=== PATIENT | male | born 1975 | race Caucasian/White ===

== ENCOUNTER → 2017-02-23 | Outpatient (CLI) | payer BC ==
[~2017-02-23] MED LIST: MEDLIST; OXYC-57 PO
--- NOTE | 2017-02-23 14:22 | DIAGNOSTIC IMAGING REPORT ---
TESTICULAR ULTRASOUND CLINICAL HISTORY: N50.812 Testicular pain, left COMPARISON STUDY: No previous studies for comparison. FINDINGS: The right testis measures 47 x 23 x 35 mm. The left testis measures 48 x 20 x 30 mm. No intratesticular masses are visualized. There is no evidence of testicular torsion. There is a 2 mm right-sided epididymal cyst. IMPRESSION: 1. No evidence of intratesticular mass 2. No evidence of testicular torsion Electronically signed by: Ziyad Palomino M.D. 02/23/2017 2:21 PM Dictated Date/Time: 02/23/2017 2:20 PM
== END | disposition home or self-care (01) ==
LOC: C.ULTR 12:56
PROVIDERS: ATTEND Family Medicine
DX: N50.812 Left testicular pain (principal)

== ENCOUNTER 2019-02-18 06:01 | Observation (INO) ==
[2019-02-14 11:58] LABS: Basophils # (auto) 0.02 K/uL (0-0.2); Basophils % (auto) 0.4 %; Eosinophils # (auto) 0.21 K/uL (0-0.5); Eosinophils % (auto) 3.8 %; Hematocrit (blood only) 43.2 % (42-52); Hemoglobin 15.2 g/dL (14.0-18.0); Immature Granulocytes # (auto) 0.01 K/uL (0.00-0.02); Immature Granulocytes % (auto) 0.2 %; Lymphocytes # (auto) 1.66 K/uL (1.2-3.4); Mean Corpuscular Hemoglobin 32.3 pg (25-34); Mean Corpuscular Hgb Conc 35.2 g/dL (32-36); Mean Corpuscular Volume 91.9 fL (80-100); Mean Platelet Volume 11.3 fL (7.4-10.4); Monocytes # (auto) 0.53 K/uL (0.11-0.59); Monocytes % (auto) 9.6 %; Neutrophils # (auto) 3.11 K/uL (1.4-6.5); Platelet Count 259 K/uL (130-400); RDW Coefficient of Variation 11.8 % (11.5-14.5); RDW Standard Deviation 40.1 fL (36.4-46.3); White Blood Count 5.54 K/uL (4.8-10.8)
--- NOTE | 2019-02-14 13:03 | Anesthesiology Consultation ---
Date of Service February 14, 2019 Assessment & Plan (1) Encounter for pre-operative examination: Chart Review Chart Review: Acceptable Risk for Surgery Consults Requested none History Surgery Operation Date: 02/18/19 07:30 Proposed Procedures p C6-C7 Cervical Disc Arthroplasty with End Plate Prep - Vern Goode DO Height/Weight Height: 6 ft 3 in Weight: 104.326 kg Allergies Allergy/AdvReac Type Severity Reaction Status Date / Time No Known Allergies Allergy Verified 02/05/19 10:56 Medications Home Medications Medication Instructions Recorded Confirmed Last Taken hydrocodone 5 mg-acetaminophen 325 1 tab PO Q6H PRN #30 tab 01/07/19 02/05/19 Unknown mg tablet Past Medical History Medical History Kidney stones Osteoarthritis Protrusion of intervertebral disc CERVICAL LEVEL Past Family History Family History Grandfather (Maternal) Myocardial infarction Grandfather (Paternal) Myocardial infarction Coronary heart disease AAA (abdominal aortic aneurysm) Mother Kidney stones Hyperlipidemia Father Hypertension Mother Hypertension Grandfather (Maternal) Coronary heart disease Grandfather Cardiac disorder Past Surgical History Surgical History History of tooth extraction Lipoma REMOVAL STOP BANG Total 1 Social History Smoking Status: Never smoker tobacco type: smokeless tobacco Do You Dip or Chew Tobacco: No (QUIT 3 YEARS AGO) Hx Alcohol Use: Yes Alcohol type: beer alcohol intake frequency: a few times a month Hx Substance Use: No substance use type: does not use Testing Laboratory Results 02/14/19 10:36
--- NOTE | 2019-02-15 13:40 | History and Physical Report ---
DATE OF ADMISSION: 02/18/2019 CHIEF COMPLAINT: Neck pain, arm pain, weakness. HISTORY OF PRESENT ILLNESS: Bsoton has a large herniation of the cervical spine with nerve root irritation, pressure and pain and has failed conservative measures. PAST MEDICAL HISTORY: Negative for hypertension, COPD, diabetes. PAST SURGICAL HISTORY: Negative. ALLERGIES: Negative. SOCIAL HISTORY: He is , 4 children. No alcohol. Very active. REVIEW OF SYSTEMS: Twelve system review is positive for no fevers, sweats, chills. Ear, nose and throat negative. No chest pain, palpitations. No nausea, vomiting. No urgency, frequency. He has tingling, numbness, stiffness, weakness and muscle pain. MEDICATIONS: DICLOFENAC. PHYSICAL EXAMINATION: VITAL SIGNS: Blood pressure 130/80, pulse 80, respirations 16. HEENT: Pupils react to light and accommodation. Ear, nose and throat clear. CARDIAC: Normal S1, S2, no S3. His cervical spine demonstrates significant Spurling maneuver, significant Lhermitte sign, triceps weakness graded 3/5, worsening. IMPRESSION: Large herniation, cervical spine C6-C7. PLAN: Includes a cervical disc arthroplasty, C6-C7 of the cervical spine.
[~2019-02-18 06:01] MED LIST changes: +CEFAZOLIN 2000MG 2,000 MG/15 ML SYR IV SCH; +LR 15ML/HR IV SCH; -MEDLIST; -OXYC-57 PO; +SODIUM CHLORIDE 0.9% 1,000 ML IV SCH
[2019-02-18] MEDS ORDERED: MIDAZOLAM HCL 1 MG/ML 2ML VIAL ONE (06:56)
[2019-02-18] MEDS ORDERED: ONDANSETRON INJ 2 MG/ML 2 ML VIAL IV PRN ×2 (06:56→11:15)
[2019-02-18] MEDS ORDERED: ATROPINE SULFATE 0.1 MG/ML 10ML SYR IV PRN (06:56)
[2019-02-18] MEDS ORDERED: fentaNYL citrate 100 MCG/2 ML VIAL ONE (06:56)
[2019-02-18] MEDS ORDERED: fentaNYL citrate 100 MCG/2 ML VIAL IV PRN (06:56)
[2019-02-18] MEDS ORDERED: ePHEDrine sulfate 50 MG/ML AMP IV PRN (06:56)
[2019-02-18] MEDS ORDERED: THROMBIN FOR SOLN 20000 UNIT KIT ONE (07:00)
[2019-02-18] MEDS ORDERED: BACITRACIN INJ 50,000 UNIT VIAL ONE (07:00)
[2019-02-18] MEDS ORDERED: EPINEPHrine INJ 1 MG/ML AMP ONE (07:00)
[2019-02-18] MEDS ORDERED: BUPIVACAINE 0.5 % 5 MG/1 ML MPF 30ML VIAL ONE (07:00)
[2019-02-18] MEDS ORDERED: GELATIN SPONGE SZ 100 ONE (07:00)
--- NOTE | 2019-02-18 07:21 | History & Physical Bridge Note ---
Date of Service February 18, 2019 History & Physical Bridge Note I have examined the patient, reviewed the History & Physical and in the interval since the performance of the History & Physical I have noted the following changes of clinical significance: no changes noted
[2019-02-18] MEDS ORDERED: ePHEDrine sulfate 50 MG/ML SYR ONE (07:59)
[2019-02-18] MEDS ORDERED: ROCURONIUM BROMIDE 10 MG/ML 5 ML VIAL ONE (07:59)
[2019-02-18] MEDS ORDERED: ONDANSETRON INJ 2 MG/ML 2 ML VIAL ONE (07:59)
[2019-02-18] MEDS ORDERED: DEXAMETHASONE SOD INJ 4 MG/ML VIAL ONE (07:59)
[2019-02-18] MEDS ORDERED: NEOSTIGMINE METHYLSULFATE 5 MG/5 ML SYR ONE (07:59)
[2019-02-18] MEDS ORDERED: LARYING-O-JET KIT (LTA) ONE (07:59)
[2019-02-18] MEDS ORDERED: PROPOFOL IV EMULSION 10 MG/ML 20 ML VIAL IV ONE (07:59)
[2019-02-18] MEDS ORDERED: GLYCOPYRROLATE 0.2 MG/ML VIAL ONE (07:59)
[2019-02-18] MEDS ORDERED: LIDOCAINE HCL 2% 2 ML VIAL/AMP(20MG/ML) INFIL ONE (07:59)
[2019-02-18] MEDS ORDERED: HYDROmorphone INJ 2 MG/ML SYR/VIAL ONE (08:00)
--- NOTE | 2019-02-18 09:41 | Post Operative Brief Note ---
PG Immediate Post Op with CF Date of Surgery February 18, 2019 Pre & Post Diagnosis Operation Date: 02/18/19 07:30 Pre-Op Diagnosis: Large herniation, cervical spine C6-C7 Post-Op Diagnosis: Large herniation, cervical spine C6-C7 I identified the patient and participated in the time-out.: Yes Procedure Operation Date: 02/18/19 07:30 Actual Procedures p C6-C7 Cervical Disc Arthroplasty (Not Applicable) - Vern Goode DO Surgeon Vern Goode DO Long Winder Tender basilio Estimated Blood Loss 10 Findings Consistent with Post-Op Diagnosis Specimens Specimen Description: none per surgeon Drains Cherelle Drain (1/4 inch) Overlapping Procedure I was immediately available: during the entire case.
--- NOTE | 2019-02-18 09:43 | Fluoroscopy Report ---
FL spine 1V any level CLINICAL HISTORY: ACDF C6-7 COMPARISON STUDY: None. FLUOROSCOPY TIME: 1 minute and 4 seconds. FINDINGS: 2 fluoroscopic spot images of the cervical spine demonstrate C6-C7 arthroplasty with an ass ociated disc spacer. The hardware appears intact. IMPRESSION: Fluoroscopy provided for postoperative changes within the cervical spine as described abo ve. Electronically signed by: Alexander Weinberg M.D. 02/18/2019 9:42 AM
--- NOTE | 2019-02-18 10:04 | Operative Report ---
DATE OF OPERATION: 02/18/2019 SURGEON: Vern Goode DO SAIL CUTTER: Sher Guzmán. COMPLICATIONS: Zero. BLOOD LOSS: Less than 100 mL. PREOPERATIVE DIAGNOSIS: Cervical disc herniation with cord compression C6-C7 cervical spine. POSTOPERATIVE DIAGNOSIS: Cervical disc herniation with cord compression C6-C7 cervical spine. PROCEDURE: Include an anterior cervical arthroplasty, C6-7 cervical spine. COMPLICATIONS: Zero. BLOOD LOSS: Stated. IMPLANTS USED: Mobi-C cervical arthroplasty. DESCRIPTION OF PROCEDURE: The patient was taken to the operating room, a general intubated anesthetic provided to the patient, kept supine on the Jose table. We taped him perfectly placement approximately 5 pounds of traction. We scrubbed with Betadine, prepped with ChloraPrep and commenced with surgery. A formal timeout was taken. We made a transverse skin incision right over the C6-C7 interval, came right down to C6-C7 interspace. We marked this with a C-spine lateral radiograph. I then performed the dissection and meticulously got all the disc material out at C6-C7 interspace. I was confident I was able to decompress the spinal canal and get the disc material off the cord and the nerve root. I put in self-retaining retractor which was 2 pins, 1 pin superior and 1 pin inferior, distracted it ever so slightly. We then went through the trials with the arthroplasty device by the Mobi-C. I settled on a size 6 in height, 17 in depth, 15 mm across. I thought the fit was nearly anatomic. We went with a trial first a 1 Mobi-C that the implant was failing. I felt the polyethylene spacer was then consistent with the endplates, so we actually selected a new and different arthroplasty which fit perfectly. I took the traction off the patient. I can see some slight compression. I seated the arthroplasty a little bit further. We began our closure over a Cherelle drain. Sterile dressings applied. Collar applied. The patient returned to PACU improved, stable. I attest to the content of the Intraoperative Record and any orders documented therein. Any exception s are noted below.
--- NOTE | 2019-02-18 10:23 | Anesthesiology Progress Note ---
Date of Service February 18, 2019 Anesthesia Post Procedure Vital Signs Vital Signs: Temp Pulse Pulse Resp BP Pulse Ox 02/18/19 10:20 52 L 13 128/73 99 02/18/19 10:10 53 L 12 120/69 97 02/18/19 10:00 42 L 12 120/66 99 02/18/19 09:50 63 15 127/79 100 02/18/19 09:42 36.4 C L 58 L 17 142/57 H 100 02/18/19 06:25 36.4 C L 54 L 18 125/84 98 Pain Intensity Medial Neck: Pain Intensity: 7 Right Shoulder: Pain Intensity: 2 Transfer of Care Handoff Completed per policy Notes Mental Status: alert / awake / arousable and participated in evaluation Patient Amnestic to Procedure: Yes Nausea / Vomiting: adequately controlled Pain: adequately controlled Airway Patency, RR, SpO2: stable & adequate BP & HR: stable & adequate Hydration State: stable & adequate Anesthetic Complications: no major complications apparent and Pt Satisfied with anesthetic care
[2019-02-18] MEDS ORDERED: ACETAMINOPHEN 1,000 MG/100 ML VIAL IV PRN (11:15)
[2019-02-18] MEDS ORDERED: OXYCODONE HCL IR 5 MG TAB (IMMEDIATE RELEASE) PO PRN (11:15)
[2019-02-18] MEDS ORDERED: RACEPINEPHRINE 2.25% NEBU SOLN 0.5 ML VIAL INH PRN (11:15)
[2019-02-18] MEDS ORDERED: DO NOT ADMINISTER FLU VACCINE PRN (11:15)
[2019-02-18] MEDS ORDERED: HYDROmorphone INJ 0.5 MG/0.5 ML SYR IV PRN (11:15)
[2019-02-18] MEDS ORDERED: MAGNESIUM HYDROXIDE SUSP 30 ML UDC PO PRN (11:15)
[2019-02-18] MEDS ORDERED: LORazepam 0.5 MG TAB PO PRN (11:15)
[2019-02-18] MEDS ORDERED: ONDANSETRON 4 MG OD TAB PO PRN (11:15)
[2019-02-18] MEDS ORDERED: DO NOT ADMINISTER PNEUMOCOCCAL VACCINE PRN (11:15)
[2019-02-18] MEDS ORDERED: TRAMADOL HCL 50 MG TABLET PO PRN (11:15)
[2019-02-18] MEDS ORDERED: METOCLOPRAMIDE HCL INJ 5 MG/ML 2 ML VIAL IV PRN (11:15)
[2019-02-18] MEDS ORDERED: SOD PHOSPHATE/SOD BIPHOSPHATE ENEMA 132 ML BTL PR PRN (11:15)
[2019-02-18] MEDS ORDERED: ALUMINUM/MAGNESIUM SUSP 30 ML UDC PO PRN (11:15)
[2019-02-18] MEDS ORDERED: FAMOTIDINE 20 MG TAB PO PRN (11:15)
[2019-02-18] MEDS ORDERED: NALOXONE HCL 0.4 MG/1 ML VIAL/CARP IV PRN (11:15)
[2019-02-18] MEDS ORDERED: PROMETHAZINE HCL 12.5 MG in SODIUM CHLORIDE 0.9% 50 ML IV PRN (11:15)
[2019-02-18] MEDS: SODIUM CHLORIDE 0.9% 1000ML 1,000 ML IV SCH (12:05)
[2019-02-18] MEDS: KETOROLAC 30 MG/ML VIAL IV SCH ×2 (12:05→17:12)
[2019-02-18] MEDS: CEFAZOLIN 2000MG 2,000 MG/15 ML SYR IV SCH (17:12)
[2019-02-18] MEDS ORDERED: DOCUSATE SODIUM/SENNA 50/8.6MG TAB PO SCH (21:00)
[2019-02-19] MEDS: CEFAZOLIN 2000MG 2,000 MG/15 ML SYR IV SCH (00:03)
[2019-02-19] MEDS: SODIUM CHLORIDE 0.9% 1000ML 1,000 ML IV SCH (00:04)
[2019-02-19] MEDS: KETOROLAC 30 MG/ML VIAL IV SCH ×2 (00:04→06:06)
[2019-02-19] MEDS ORDERED: POLYETHYLENE (MIRALAX) 17 GM PACK PO SCH (06:00)
[2019-02-19 06:20] VITALS: BP 138/72; TEMP 97.7
[2019-02-19 07:16] VITALS: PULSE 50
--- NOTE | 2019-02-19 08:47 | Discharge Summary ---
Admission date for observation status only was 02/18/2019 DATE OF DISCHARGE: 02/19/2019 He had a cervical disc arthroplasty, uneventful surgery and he has done well postoperatively with minimal complaints of pain, off narcotics and improved neurological status. Again, he had an uneventful problem. PLAN: He will be discharged home today in improved stable condition. He has a collar. He has medication at home. Instructions, precautions and education provided as well.
[2019-02-19 09:19] VITALS: O2SAT 99
[2019-02-20] MEDS ORDERED: BISACODYL 10 MG SUPP PR PRN (09:44)
== END 2019-02-19 10:42 | disposition home or self-care (01) ==
LOC: 3E 06:01 → ASU 06:01